=== PATIENT | male | born 1985 | race Caucasian/White ===

== ENCOUNTER 2022-05-25 08:06 | Emergency (ER) | payer MEDICAID ==
[~2022-05-25] VITALS: Ht 170.2 cm; Wt 90.7 kg
[2022-05-25 08:06] VITALS: BP_SYST 157
--- NOTE | 2022-05-25 08:06 | NUR ---
BROUGHT BACK TO BED #8, TRIAGED AND REPORT GIVEN TO MICAH
--- NOTE | 2022-05-25 08:10 | NUR ---
RECEIVED PT FROM LUPILLO MEDINA. PT BIB SELF FOR C/O ASTHMA ATTACK. PT IS AAOX4. ON R/A WITH NOTED DYSPNEA, AND USE OF ACCESSORY MUSCLE, O2 SAT 92% ON R/A. TELEMONITOR SHOWS NORMAL S1S2. DENIES N/V/D/C. DISTAL PULSES NORMAL. DENIES PAIN. SIDERAILS UP X2.
--- NOTE | 2022-05-25 08:12 | NUR ---
DR. SHOOK AT BEDSIDE TO ASSESS PT.
[2022-05-25] MEDS ORDERED: predniSONE 20 MG TABLET PO ONE (08:15)
[2022-05-25] MEDS ORDERED: IPRATROPIUM/ALBUTEROL SULFATE 3 ML AMPUL.NEB (DUONEB) INH ONE (08:15)
--- NOTE | 2022-05-25 08:24 | NUR ---
R/T AT BEDSIDE, PT RECEIVING BREATHING TX. CXR COMPLETED.
--- NOTE | 2022-05-25 08:40 | NUR ---
covid sample obtained and taken to lab.
--- NOTE | 2022-05-25 09:07 | NUR ---
DR. SHOOK AT BEDSIDE TO DISCUSS POC.
[2022-05-25] MEDS ORDERED: ALBUTEROL SULFATE 0.083% 2.5 MG/3 ML VIAL.NEB INH ONE (09:30)
[2022-05-25] MEDS ORDERED: ALBU2.5V7 INH (09:41)
[2022-05-25] MEDS ORDERED: ALBMDI INH (09:41)
[2022-05-25] MEDS ORDERED: PRED20TA PO (09:41)
[2022-05-25] MEDS ORDERED: [UNRECOGNIZED DRUG - CODE] MC (09:41)
[2022-05-25 09:59] VITALS: BP_SYST 142
--- NOTE | 2022-05-25 10:01 | NUR ---
Patient given written and verbal discharge instructions and verbalizes understanding. ER MD discussed with patient the results and treatment provided. Patient in stable condition. ID arm band removed. Rx of ALBUTEROL, VENTOLIN HFA, COMPRESSOR, PREDINISONE given. Patient educated on pain management and to follow up with PMD. Pain Scale 0/10. Opportunity for questions provided and answered. Medication side effect fact sheet provided.
== END 2022-05-25 10:01 | disposition home or self-care (01) ==
LOC: SED 08:06
DX: J45.901 Unspecified asthma with (acute) exacerbation (principal); R06.03 Acute respiratory distress; Z79.899 Other long term (current) drug therapy; Z20.822 Contact with and (suspected) exposure to COVID-19
CPT/HCPCS: 36415; 71045; 94640; 94760; 99284; 87426; J7512; J7613